=== PATIENT | male | born 1955 | race Caucasian/White ===

== ENCOUNTER 2024-12-02 05:36 | Inpatient (IN) ==
--- NOTE | 2024-11-22 15:48 | PAT Medication Instructions ---
Medication Instructions Date of Service November 22, 2024 Home Medications hydrocodone 10 mg-acetaminophen 325 mg tablet 1 tab PO TID Pain ascorbic acid (vitamin C) 500 mg tablet (Vitamin C) 500 mg PO QAM aspirin 81 mg capsule 81 mg PO DAILY baclofen 10 mg tablet 10 mg PO TID cholecalciferol (vitamin D3) 25 mcg (1,000 unit) tablet (Vitamin D3) 25 mcg PO QAM lutein 20 mg tablet 20 mg PO QAM morphine 30 mg tablet,extended release 30 mg PO Q12H xfnylkzranzt-liteywpp-aoscqy tablet (Multivitamin 50 Plus tablet) 1 tab PO QAM omega 8-vep-qnc-fish oil 1,000 mg (120 mg-180 mg) capsule (Fish Oil) 1 cap PO HS zinc 50 mg tablet 50 mg PO QPM ASK your prescriber and surgeon aspirin 81 mg capsule 81 mg PO DAILY STOP taking 2 weeks before surgery (or as soon as possible if surgery is within 2 weeks) lutein 20 mg tablet 20 mg PO QAM omega 0-kue-uvc-fish oil 1,000 mg (120 mg-180 mg) capsule (Fish Oil) 1 cap PO HS DO NOT take the morning of surgery ascorbic acid (vitamin C) 500 mg tablet (Vitamin C) 500 mg PO QAM cholecalciferol (vitamin D3) 25 mcg (1,000 unit) tablet (Vitamin D3) 25 mcg PO QAM bdozypkelkbh-aufjgvcd-ucxymc tablet (Multivitamin 50 Plus tablet) 1 tab PO QAM Take morning of surgery With a small sip of water, OTHERWISE NOTHING TO EAT OR DRINK AFTER MIDNIGHT: hydrocodone 10 mg-acetaminophen 325 mg tablet 1 tab PO TID Pain (if needed) baclofen 10 mg tablet 10 mg PO TID morphine 30 mg tablet,extended release 30 mg PO Q12H Take evening before surgery hydrocodone 10 mg-acetaminophen 325 mg tablet 1 tab PO TID Pain (if needed) baclofen 10 mg tablet 10 mg PO TID morphine 30 mg tablet,extended release 30 mg PO Q12H zinc 50 mg tablet 50 mg PO QPM Other Notes If you have any questions please call us at [phone] or [phone] or [phone] or [phone]
--- NOTE | 2024-11-25 09:01 | Anesthesiology Consultation ---
Date of Service November 25, 2024 Assessment & Plan (1) Encounter for pre-operative examination: - check BSG am DOS. - Patient acceptable to proceed from anesthesia standpoint. Surgeon's office made aware of A1c level. Patient made aware, he denied additional questions or concerns-expressed he knew it was borderline last year and has been working to reduce soda intake. PAT testing to be faxed to PCP for continuity of care, Dr. Varsha Angel. Chart Review Chart Review: Acceptable Risk for Surgery and Patient seen in Pre Admission Testing Teaching & Discussion Pre-Anesthesia Teaching/Discussion Notes: Instructed NPO after midnight before surgery, except medications with 15 cc of water. Medication instructions provided according to the PAT guidelines. History Surgery Operation Date: 12/02/24 07:15 Proposed Procedures p Right L3-L4 Extreme Lateral Interbody Fusion, Posterior Instrumented Fusion L3-L4, L3 Laminectomy, with CT Navigation - Fox Adams MD Height/Weight Height: 5 ft 8 in Weight: 95 kg Allergies Allergy/AdvReac Type Severity Reaction Status Date / Time celecoxib [From Celebrex] Allergy Severe itching Verified 11/22/24 14:56 all over and slight sob codeine Allergy Severe facial Verified 11/22/24 14:56 swelling, difficulty breathing Medications Home Medications Medication Instructions Recorded Confirmed Last Taken hydrocodone 10 mg-acetaminophen 1 tab PO TID Pain 11/20/24 11/22/24 Unknown 325 mg tablet ascorbic acid (vitamin C) 500 mg 500 mg PO QAM 11/22/24 11/22/24 Unknown tablet (Vitamin C) aspirin 81 mg capsule 81 mg PO DAILY 11/22/24 11/22/24 Unknown baclofen 10 mg tablet 10 mg PO TID 11/22/24 11/22/24 Unknown cholecalciferol (vitamin D3) 25 25 mcg PO QAM 11/22/24 11/22/24 Unknown mcg (1,000 unit) tablet (Vitamin D3) lutein 20 mg tablet 20 mg PO QAM 11/22/24 11/22/24 Unknown morphine 30 mg tablet,extended 30 mg PO Q12H 11/22/24 11/22/24 Unknown release qeeppbvwljyj-dkdgpwof-sgpayh 1 tab PO QAM 11/22/24 11/22/24 Unknown tablet (Multivitamin 50 Plus tablet) omega 6-jre-scm-fish oil 1,000 mg 1 cap PO HS 11/22/24 11/22/24 Unknown (120 mg-180 mg) capsule (Fish Oil) zinc 50 mg tablet 50 mg PO QPM 11/22/24 11/22/24 Unknown Past Medical History Medical History (Updated 11/27/24 @ 08:25 by Jes Negrete PA-C) Chronic back pain Chronic neck pain Diabetes History of asthma as a young adult "humidity asthma" - no current issues History of COVID-19 (~2019) ~2020: severe cold symptoms, no hospitalization. resolved History of skin cancer multiple, s/p excisions Lumbar foraminal stenosis Lumbar radiculopathy Patient denies h/o stroke, seizures, heart attack, heart failure, DM, HTN, blood clots/DVTs or blood transfusions. Exercise / Class Metabolic Activity III < 4 Walking/Shop/Light housework (ambulates with cane, denies chest discomfort or shortness of breath with usual activities) Past Family History Family History Other No family history of adverse response to anesthesia Past Surgical History Surgical History History of appendectomy (1968) History of carpal tunnel release (1983) bilateral History of colonoscopy History of lumbar surgery (1986) no fusion Hx of local excision of skin lesion S/P cervical spinal fusion ~2000 - ACDF - unsure of what levels ~2001 - ACDF - revision of cervical fusion with additional level ~2002 - ACDF - revision of cervical fusion with additional level - limited ROM to the right, no issues looking up/down. S/P epidural steroid injection S/P hernia repair (1962) right inguinal hernia repair S/P insertion of spinal cord stimulator placed in 2009 ([facility] in [place]), had a replacemen t/upgraded device placed in + had removed for an MRI (removed 09/2024) S/P lumbar fusion (1998) Past Anesthesia History No Hx of Anesthesia Complications and No Family Hx of Anesthesia Complications History of PONV No Hx of PONV and No Hx of Motion Sickness Social History Smoking Status: Former smoker Do You Dip or Chew Tobacco: No Smoking End Date: 1996 Hx Alcohol Use: Yes Alcohol type: beer alcohol intake frequency: holidays/special occasions only Hx Substance Use: No substance use type: does not use Review of Systems Patient denies chest pain, shortness of breath, dyspnea on exertion, snoring, witnessed apneas, reflux, fever, chills, cough, wheezing, or palpitations. Physical Exam Vital Signs Vitals BP 157/78 P 79 TEMP 97.9 SP02 95% on RA RESP 17 Physical Patient resting comfortably in chair in no acute distress, alert and oriented, responding appropriately throughout visit Full cervical extension range of motion without pain TMD 3.5 finger breadths Mallampati Score 2 Dentition: upper partial and chipped tooth, denies loose teeth, caps/crowns, implants or bridges Lungs: normal respiratory effort. Good air movement, clear throughout to auscultation, no adventitious breath sounds Cardiac: regular rate and rhythm, no murmurs noted Carotid arteries: negative bruit bilat Lab Results Anesthesia Preop Results Results Anesthesia Widget: WBC 5.52 K/ul (4.8-10.8) 11/25/24 Hgb 13.6 g/dl (14.0-18.0) L 11/25/24 Hct 40.9 % (42.0-52.0) L 11/25/24 Plt 168 K/uL (130-400) 11/25/24 Na 138 mmol/L (136-145) 11/25/24 K 3.9 mmol/L (3.5-5.1) 11/25/24 Cl 102 mmol/L (98-107) 11/25/24 CO2 30 mmol/L (21-32) 11/25/24 BUN 15 mg/dl (6-23) 11/25/24 Creat 0.85 mg/dl (0.6-1.4) 11/25/24 Glucose Level 226 mg/dl (70-99(Fasting)) H 11/25/24 PT 9.9 Seconds (9.0-12.0) 11/25/24 PTT 26 Seconds (21-31) 11/25/24 INR 0.9 (0.9-1.1) 11/25/24 HA1c 6.5 % (4.5-5.6) H 11/25/24 Blood Type A Positive 11/25/24 Antibody Screen NEGATIVE 11/25/24 Testing Laboratory Results A1c was not covered by insurance, patient elected for cancellation of A1c- surgeon's office made aware. Electrocardiogram Date: 11/25/24 NSR, rate 73 bpm
[2024-12-02] MEDS: LR 60ML/HR IV SCH (06:22)
[2024-12-02] MEDS: LR 15ML/HR IV SCH (06:22)
[2024-12-02] MEDS ORDERED: ATROPINE SULFATE 0.1 MG/ML 10ML SYR IV PRN (06:59)
[2024-12-02] MEDS ORDERED: PROMETHAZINE HCL 6.25 MG in SODIUM CHLORIDE 0.9% 50 ML IV PRN (06:59)
[2024-12-02] MEDS ORDERED: ePHEDrine sulfate 50 MG/ML AMP IV PRN (06:59)
[2024-12-02] MEDS ORDERED: ONDANSETRON INJ 2 MG/ML 2 ML VIAL ONE ×3 (07:03→08:41)
[2024-12-02] MEDS ORDERED: DEXAMETHASONE SOD INJ 4 MG/ML VIAL ONE (07:03)
[2024-12-02] MEDS ORDERED: LIDOCAINE 2% 2 ML VIAL/AMP(20MG/ML) INFIL ONE (07:03)
[2024-12-02] MEDS ORDERED: MIDAZOLAM HCL 1 MG/ML 2ML VIAL ONE (07:03)
[2024-12-02] MEDS ORDERED: PROPOFOL IV EMULSION 10 MG/ML 20 ML VIAL IV ONE (07:03)
[2024-12-02] MEDS ORDERED: HYDROmorphone INJ 2 MG/ML SYR/VIAL ONE (07:04)
[2024-12-02] MEDS ORDERED: ROCURONIUM BROMIDE 10 MG/ML 5 ML VIAL IV ONE (07:04)
[2024-12-02] MEDS ORDERED: SODIUM CHLORIDE 0.9% PF INJ 10 ML VIAL ONE (07:04)
[2024-12-02] MEDS ORDERED: SUCCINYLCHOLINE CHLORIDE 20 MG/ML 10 ML VIAL IV ONE (07:04)
--- NOTE | 2024-12-02 07:31 | History & Physical Bridge Note ---
Date of Service December 02, 2024 History & Physical Bridge Note I have examined the patient, reviewed the History & Physical and in the interval since the performance of the History & Physical I have noted the following changes of clinical significance: no changes noted Lateral lumbar interbody fusion and decompression L3-4
[2024-12-02] MEDS ORDERED: PHENYLEPHRINE 100MCG/ML 5ML SYR ONE ×2 (08:05→10:01)
[2024-12-02] MEDS ORDERED: ePHEDrine sulfate 50 MG/5 ML SYR ONE (08:10)
[2024-12-02] MEDS: ceFAZolin 2000MG 2,000 MG/15 ML SYR IV SCH ×2 (08:15→19:56)
[2024-12-02] MEDS ORDERED: PHENYLEPHRINE HCL 10 MG/ML VIAL ONE (08:19)
[2024-12-02] MEDS ORDERED: SUGAMMADEX SODIUM 200 MG/2 ML VIAL IV ONE (08:42)
[2024-12-02] MEDS ORDERED: PROPOFOL IV EMULSION 10 MG/ML 100 ML VIAL IV ONE ×3 (08:44→10:45)
--- NOTE | 2024-12-02 10:51 | Fluoroscopy Report ---
FL lumbar spine 2-3V CLINICAL HISTORY: L3-L4 COMPARISON STUDY: None FLUOROSCOPY TIME: 103 seconds FLUOROSCOPY IMAGES: 4 EXPOSURE DOSE: 71 mGy FINDINGS: Fluoroscopy was provided for lumbar surgery. IMPRESSION: Intraoperative fluoroscopy. ACT 112: Negative or not required by law. Electronically signed by: Niraj Weller M.D. 12/02/2024 10:50 AM
[2024-12-02] MEDS: VANCOMYCIN HCL 1000MG/20ML VIAL ONE (11:09)
[2024-12-02] MEDS: FLOSEAL HEMOSTATIC MATRIX 10ML TOP ONE (11:46)
[2024-12-02] MEDS: BUPIVACAINE 0.5 % 5 MG/1 ML MPF 30ML VIAL ONE (11:59)
--- NOTE | 2024-12-02 12:13 | Post Operative Brief Note ---
PG Immediate Post Op with CF Date of Surgery December 02, 2024 Pre & Post Diagnosis Operation Date: 12/02/24 07:15 Pre-Op Diagnosis: (1) Lumbar adjacent segment disease with spondylolisthesis (2) Lumbar radiculopathy (3) Lumbar stenosis with neurogenic claudication (4) Lumbar spondylosis (5) Lumbar foraminal stenosis Post-Op Diagnosis: (1) Lumbar adjacent segment disease with spondylolisthesis (2) Lumbar radiculopathy (3) Lumbar stenosis with neurogenic claudication (4) Lumbar spondylosis (5) Lumbar foraminal stenosis I identified the patient and participated in the time-out.: Yes Procedure Operation Date: 12/02/24 07:15 Actual Procedures p Right L3-L4 Extreme Lateral Interbody Fusion, L3-L4 Posterior Instrumented Fusion, L3 Laminectomy, Spinal Cord Monitoring(Right) - Fox Adams MD Surgeon Fox Adams MD Rn Dermatology Latia Waldron Estimated Blood Loss 75 Findings Consistent with Post-Op Diagnosis Specimens Specimen Description: No specimen per surgeon Drains Kulkarni Catheter Anesthesia Type General Complications none Disposition Disposition: Recovery Room
--- NOTE | 2024-12-02 12:26 | Operative Report ---
Post Operative Report Pre & Post Diagnosis Operation Date: 12/02/24 07:15 Pre-Op Diagnosis: (1) Lumbar adjacent segment disease with spondylolisthesis (2) Lumbar radiculopathy (3) Lumbar stenosis with neurogenic claudication (4) Lumbar spondylosis (5) Lumbar foraminal stenosis Post-Op Diagnosis: (1) Lumbar adjacent segment disease with spondylolisthesis (2) Lumbar radiculopathy (3) Lumbar stenosis with neurogenic claudication (4) Lumbar spondylosis (5) Lumbar foraminal stenosis I identified the patient and participated in the time-out.: Yes Procedure Operation Date: 12/02/24 07:15 Actual Procedures Anterior Lumbar Interbody Fusion via direct lateral approach L3-4 (05566) Insertion of Interbody Device for Fusion L3-4 (69668) Posterior Lumbar Fusion L3-4 (56742) Lumbar Laminectomy with medial facetectomy L3-4 (00422) Posterior Nonsegmental Pedicle Screw Instrumentation L3-4 (32295) Use of Intraoperative Stereotactic Navigation for Spinal Instrumentation (79850) Allograft and Autograft for Spinal Fusion (97677 and 06396) Instrumentation Medtronic Anteralign cage, Medtronic Percutaneous Screws Surgeon Fox Adams MD Bar Tacker Latia Waldron Estimated Blood Loss 75 Findings Consistent with Post-Op Diagnosis Specimens None Drains None Anesthesia Type General Complications none Disposition Disposition: Recovery Room Indications Patient with remote history of L4-S1 anterior posterior fusion developed adjacent segment degeneration at the L3-4 level with instability. Began to experience worsening leg pain down bilateral lower extremities consistent with both lumbar radiculopathy and neurogenic claudication. He failed extensive conservative care including epidural injections. Given failure of conservative management we discussed in the office setting anterior posterior lumbar interbody fusion via direct lateral approach as well as lumbar decompression. Risks and benefits of surgery were clearly documented in his preoperative clinic visit. Description of Procedure In the preoperative holding area, the patient was marked with a marking pen. They were taken to the operating room and anesthesia was initiated. Neuromonitoring was utilized, including running electromyography and triggered electromyography. They patient was placed in a lateral position. All bony prominences were carefully padded. Antibiotics were administered. A timeout was performed. Under the guidance of fluoroscopy, a lateral approach was utilized. An incision was made directly lateral over the L3-4 disk space. Blunt dissection was completed into the retroperitoneal space. The psoas was bluntly cleared off. A dilator was placed under fluoroscopy at the junction of the posterior and middle third of the disk space. The dilator was carefully dissected through the psoas to dock on the disc space. Neuromonitoring revealed that there were no nerves adjacent to the dilator. A guidewire was placed into the disk space. Progressively larger dilators were inserted. Neuromonitoring was utilized with each dilator to ensure that no nerves were adjacent to the approach. An appropriately sized retractor was placed over the dilators. It was secured to the bed using a clamp. Neuromonitoring revealed no nerves adjacent to the retractor. It was gently opened a small amount. A ball tip probe attached to neuromonitoring was used to further confirm that there were no nerves in the visualized field or directly behind the retractor. Having cleared the field of nerves, an annulotomy was completed using a knife. A diskectomy was completed using curettes, rongeurs and pituitaries. The endplates were prepared. An appro priately sized interbody spacer was selected and implanted after being packed with BMP and allograft material. The retractor was carefully removed and meticulous hemostasis was achieved. The fascia was closed using absorbable suture. The subcutaneous was closed using absorbable suture. Tissue sealant was used to close the skin. A sterile dressing was placed. The patient was then placed prone on a [place] table for the posterior procedure. Their back was prepped and draped in typical sterile fashion. A timeout was performed again. A stereotactic frame was attached to the patient. Intraoperative O-arm CT (computed tomography) images were obtained for stereotactic navigation. A #10 blade was used to incise the skin. Bovie electrocautery was used to elevate the paraspinal musculature off of the laminae. Using a Kerrison rongeur, a laminectomy of L3 was completed. A partial superior laminectomy of L4 was completed. Ligamentum flavum between L3-4 was removed. There was noted to be facet hypertrophy at L3-4. This was causing significant lateral recess stenosis. Therefore, a partial medial facetectomy was completed. The L4 traversing nerve roots were confirmed to be completely decompressed. Bilateral foraminotomy performed to decompress the exiting nerve roots. The L3-4 facet joints were decorticated. Local autograft was packed into the facets to induce fusion. Using stereotactic assistance, pedicle screw tracts were created using an awl. Next, utilizing stereotactic assistance, screws of appropriate length were placed into the pedicles of L4 and L3. Electromyography confirmed appropriate position. Rods were placed bilaterally. Set screws were placed and final tightened. A second intraoperative CT scan was then obtained to verify appropriate position of the hardware. The fascia, subcutaneous and cutaneous were closed in layers using suture. A sterile dressings was placed. At the end of case, all instrument and sponge counts were correct. The patient was awakened from anesthesia and taken to the PACU in stable condition. I attest to the content of the Intraoperative Record and any orders documented therein. Any exceptions are noted below.
[2024-12-02] MEDS: HYDROmorphone INJ 2 MG/ML SYR/VIAL IV PRN (12:50)
[2024-12-02] MEDS: ACETAMINOPHEN 1,000 MG/100 ML VIAL IV STA (13:29)
[2024-12-02] MEDS: HYDROmorphone INJ 0.5 MG/0.5 ML SYR IV PRN (13:29)
--- NOTE | 2024-12-02 14:04 | Anesthesiology Progress Note ---
Date of Service December 02, 2024 Anesthesia Post Procedure Vital Signs Vital Signs: Temp Pulse Pulse Resp BP Pulse Ox O2 Del Method 12/02/24 14:00 100 H 12 112/70 95 Nasal Cannula 12/02/24 13:45 36.4 C L 96 H 12 111/71 97 Nasal Cannula 12/02/24 13:35 102 H 16 119/69 95 Nasal Cannula 12/02/24 13:25 93 H 16 135/76 94 Nasal Cannula 12/02/24 13:15 102 H 14 129/74 95 Nasal Cannula 12/02/24 13:05 97 H 20 148/75 H 96 Nasal Cannula 12/02/24 12:55 90 16 145/84 H 100 Oxymask 12/02/24 12:45 93 H 16 154/85 H 99 Oxymask 12/02/24 12:35 91 H 14 154/88 H 96 Oxymask 12/02/24 12:25 98 H 16 154/76 H 96 Oxymask 12/02/24 12:15 36 C L 99 H 18 154/85 H 96 Oxymask 12/02/24 06:02 37.0 C 94 H 18 152/93 H 94 Room Air O2 Flow Rate 12/02/24 14:00 3 12/02/24 13:45 3 12/02/24 13:35 3 12/02/24 13:25 3 12/02/24 13:15 3 12/02/24 13:05 3 12/02/24 12:55 4 12/02/24 12:45 4 12/02/24 12:35 6 12/02/24 12:25 6 12/02/24 12:15 6 12/02/24 06:02 Pain Intensity Lower Back: Pain Intensity: 4 Transfer of Care Handoff Completed per policy Notes Mental Status: alert / awake / arousable and participated in evaluation Nausea / Vomiting: adequately controlled Pain: adequately controlled Airway Patency, RR, SpO2: stable & adequate BP & HR: stable & adequate Hydration State: stable & adequate Anesthetic Complications: no major complications apparent and Pt Satisfied with anesthetic care
[2024-12-02] MEDS ORDERED: LORazepam 2 MG/1 ML VIAL IV PRN (14:54)
[2024-12-02] MEDS ORDERED: hydrOXYzine HCl 25 MG TAB PO PRN (14:54)
[2024-12-02] MEDS ORDERED: PROMETHAZINE 12.5 MG/50.5 ML BAG IV PRN (14:54)
[2024-12-02] MEDS ORDERED: ONDANSETRON 4 MG OD TAB PO PRN (14:54)
[2024-12-02] MEDS ORDERED: bisacodyL 10 MG SUPP PR PRN (14:54)
[2024-12-02] MEDS ORDERED: ONDANSETRON INJ 2 MG/ML 2 ML VIAL IV PRN (14:54)
[2024-12-02] MEDS ORDERED: ACETAMINOPHEN 1,000 MG/100 ML VIAL IV PRN (14:54)
[2024-12-02] MEDS ORDERED: SOD PHOSPHATE/SOD BIPHOSPHATE ENEMA 132 ML BTL PR PRN (14:54)
[2024-12-02] MEDS ORDERED: LORazepam 0.5 MG TAB PO PRN (14:54)
[2024-12-02] MEDS ORDERED: FAMOTIDINE 20 MG TAB PO PRN (14:54)
[2024-12-02] MEDS ORDERED: ALUMINUM/MAGNESIUM SUSP 30 ML UDC PO PRN (14:54)
[2024-12-02] MEDS ORDERED: DO NOT ADMINISTER FLU VACCINE PRN (14:54)
[2024-12-02] MEDS ORDERED: MAGNESIUM HYDROXIDE SUSP 30 ML UDC PO PRN (14:54)
[2024-12-02] MEDS ORDERED: NALOXONE HCL 0.4 MG/1 ML VIAL/CARP IV PRN (14:54)
[2024-12-02] MEDS ORDERED: DO NOT ADMINISTER PNEUMOCOCCAL VACCINE PRN (14:54)
[2024-12-02] MEDS ORDERED: METOCLOPRAMIDE HCL INJ 5 MG/ML 2 ML VIAL IV PRN (14:54)
[2024-12-02] MEDS: ACETAMINOPHEN 1000 MG/100 ML IV IV ONE (14:58)
[2024-12-02] MEDS: HYDROmorphone INJ 0.5 MG/0.5 ML SYR ONE (14:58)
[2024-12-02] MEDS: BACLOFEN 10 MG TAB PO SCH (15:46)
[2024-12-02] MEDS: dexAMETHasone 8 MG in SYRINGE 0 ML IV SCH (17:00)
[2024-12-02] MEDS: MoRPHine SULFATE CR 15 MG TABCR PO SCH (18:23)
[2024-12-02] MEDS: oxyCODONE HCL IR 5 MG TAB (IMMEDIATE RELEASE) PO PRN (19:56)
[2024-12-02] MEDS: DOCUSATE SODIUM/SENNA 50/8.6MG TAB PO SCH (20:00)
[2024-12-02] MEDS ORDERED: NON-FORMULARY MEDICATION (Zinc 50 mg Tablet) PO SCH (21:00)
[2024-12-03] MEDS: diphenhydrAMINE Capsule 25 MG CAP PO PRN (01:23)
[2024-12-03] MEDS: POLYETHYLENE (MIRALAX) 17 GM PACK PO SCH (05:14)
[2024-12-03 06:15] LABS: Basophils # (auto) 0.01 K/uL (0.00-0.20); Basophils % (auto) 0.1 %; Hematocrit (blood only) 36.1 % (42.0-52.0); Hemoglobin 12.3 g/dl (14.0-18.0); Immature Granulocytes # (auto) 0.07 K/uL (0.01-0.20); Immature Granulocytes % (auto) 0.6 %; Lymphocytes # (auto) 1.32 K/uL (1.20-3.40); Lymphocytes % (auto) 11.1 %; Mean Corpuscular Hemoglobin 28.3 pg (25.0-34.0); Mean Corpuscular Hgb Conc 34.1 g/dL (32.0-36.0); Mean Platelet Volume 10.9 fL (9.4-12.4); Monocytes % (auto) 2.5 %; Neutrophils # (auto) 10.19 K/uL (1.40-6.50); Neutrophils % (auto) 85.7 %; Platelet Count 159 K/uL (130-400); RDW Coefficient of Variation 13.6 % (11.5-14.5); RDW Standard Deviation 41.1 fL (36.4-46.3); Red Blood Count 4.35 M/uL (4.70-6.10); White Blood Count 11.89 K/ul (4.8-10.8)
[2024-12-03 06:31] LABS: BUN Creatinine Ratio 20.9 (10-20); Calcium 8.9 mg/dl (8.6-10.3); Creatinine Clr Calc Pharmacy 92.9 ml/min; Potassium 4.2 mmol/L (3.5-5.1)
[2024-12-03] MEDS: ASPIRIN 81 MG ECTAB PO SCH (08:17)
[2024-12-03] MEDS: CHOLECALCIFEROL 25 MCG (1000 UNITS) TAB PO SCH (08:18)
[2024-12-03] MEDS: ASCORBIC ACID 500 MG TAB PO SCH (08:18)
[2024-12-03] MEDS: ACETAMINOPHEN 500 MG TAB PO PRN (08:20)
--- NOTE | 2024-12-03 08:55 | Orthopedic Progress Note ---
Date of Service December 03, 2024 Assessment & Plan (1) S/P lumbar fusion: Plan Mobilize with PT diet as tolerated home morphine, oxy and baclofen prn wagoner out when ambulating Subjective s/p Lumbar fusion, stood up last night but no PT yet as he did not get to room until late. No leg pain, reports back pain at surgical site which improves with baclofen. Review of Systems All systems reviewed & are unremarkable except as noted in HPI & below. Physical Exam L2-S1 myotomes and dermatomes wagoner in place dressing c/d/i Results & Data Results & Data Laboratory Results . Diagnostic Findings . PG Care Time/CCT Total # of Minutes Spent Total Time Spent with Patient: Total time spent is greater than 50% in coordination of care (as documented) at patient's floor/unit and/or counseling patient: Coding Level of Care Code 40658 Post Operative Follow-Up Diagnoses S/P lumbar fusion Z98.1
[2024-12-03] MEDS ORDERED: NON-FORMULARY MEDICATION (Lutein 20 mg Tablet) PO SCH (09:00)
--- NOTE | 2024-12-03 09:33 | XRay Report ---
XR lumbar spine 2-3V CLINICAL HISTORY: post-op spine surgery COMPARISON STUDY: 11/20/2024 FINDINGS: There is interval laminectomy and posterior metallic fusion at L3-4 with no hardware compli cation seen. Stable interbody fusion at L4-5 and L5-S1. There is expected soft tissue gas and skin st aples are present posteriorly. IMPRESSION: Unremarkable postoperative exam. ACT 112: Negative or not required by law. Electronically signed by: Niraj Weller M.D. 12/03/2024 9:32 AM
--- NOTE | 2024-12-04 11:56 | Orthopedic Progress Note ---
Date of Service December 04, 2024 Assessment & Plan (1) S/P lumbar fusion: (2) Lumbar adjacent segment disease with spondylolisthesis: (3) Lumbar radiculopathy: (4) Lumbar stenosis with neurogenic claudication: (5) Lumbar spondylosis: (6) Lumbar foraminal stenosis: Plan 69-year-old male POD#2 s/p lumbar spinal fusion due to adjacent segment disease with spondylolisthesis. Pain is controlled. Medically stable. He is neurologically intact to bilateral lower extremities. Plan: 1. DVT prophylaxis w/ regular ambulation/mobilization, SCDs, and aspirin. 2. Continue PT/OT. WBAT and AAT. 3. Dressing was intact and well-appearing -- to be removed and replaced with fresh dressing prior to discharge today. 4. Return of normal bowel and bladder function. 5. Home medications of morphine, Dixon, and baclofen as needed for pain control purposes once discharged. 6. Disposition - discharge to home today once transport arrives. 7. F/u as scheduled on 12/17/24 @ 10:00 w/ Dr. Adams for first post-op visit. Subjective Patient is POD# 2 s/p: Operation Date: 12/02/24 07:15 Actual Procedures Anterior Lumbar Interbody Fusion via direct lateral approach L3-4 (16525) Insertion of Interbody Device for Fusion L3-4 (42859) Posterior Lumbar Fusion L3-4 (41780) Lumbar Laminectomy with medial facetectomy L3-4 (05488) Posterior Nonsegmental Pedicle Screw Instrumentation L3-4 (87092) Use of Intraoperative Stereotactic Navigation for Spinal Instrumentation (17306) Allograft and Autograft for Spinal Fusion (38156 and 24755) Instrumentation Medtronic Anteralign cage, Medtronic Percutaneous Screws by Dr. Adams on 12/02/2024. Patient says his pain is well-controlled this morning. Denies CP, SOB, N/V, BLE paresthesia. He says that the preoperative pain/paresthesia symptoms into the lower extremities has gone away. He does admit to some operative site pain, but this is controlled with the medications he is currently taking. Patient says that he will be ready to go home today, and that his transport should be arriving soon. Review of Systems All systems reviewed & are unremarkable except as noted in HPI & below. Physical Exam GENERAL: Speech and cognition is intact. Mood and affect is appropriate. Does not appear in acute distress. HEAD: Normocephalic; atraumatic. CHEST: Regular chest respiration and excursion. EXTREMITIES: Sensation intact to light touch of the bilateral L2-S1 dermatomes. 5/5 strength L1-S2 myotomes; No deficits noted. BACK: Gauze dressing intact to lumbar region with mild dried saturation noted, which is stable. Dressing intact to lateral lumbar region. Tegaderm occlusive dressings intact with good seal. NEURO: Awake, alert, and oriented x 3. Results & Data Results & Data Laboratory Results . Diagnostic Findings . Lumbar Spine X-Ray 12/03/24 07:00 XR lumbar spine 2-3V CLINICAL HISTORY: post-op spine surgery COMPARISON STUDY: 11/20/2024 FINDINGS: There is interval laminectomy and posterior metallic fusion at L3-4 with no hardware complication seen. Stable interbody fusion at L4-5 and L5-S1. There is expected soft tissue gas and skin millie are present posteriorly. IMPRESSION: Unremarkable postoperative exam. ACT 112: Negative or not required by law. Electronically signed by: Niraj Weller M.D. 12/03/2024 9:32 AM PG Care Time/CCT Total # of Minutes Spent Total Time Spent with Patient: Total time spent is greater than 50% in coordination of care (as documented) at patient's floor/unit and/or counseling patient: C[place] [address] Post Operative Follow-Up Patient Type Established History Problem Focused Exam Problem Focused Medical Decision Making Straight Forward Diagnoses S/P lumbar fusion Z98.1 Lumbar adjacent segment disease with spondylolisthesis M51.369; M43.16 Lumbar radiculopathy M54.16 Lumbar stenosis with neurogenic claudication M48.062 Lumbar spondylosis M47.816 Lumbar foraminal stenosis M48.061
--- NOTE | 2024-12-04 12:00 | Discharge Summary ---
Date of Service December 04, 2024 Admission HPI (Per Admitting) Patient is a pleasant 69-year-old gentleman who comes in today for evaluation of worsening back pain radiating to the bilateral lower extremities. He has an extensive history of spine surgery, anterior lumbar interbody fusions at L4-5 L5-S1 which were done back in 1998. Since that time he has had varying degrees of back pain as well as some lower extremity pain. He has done physical therapy multiple times, and has been treating with a pain management physician Dr. Wilkes in [place]. Recently he had worsening low back pain as well as pain radiating down the bilateral lower extremities into the anterior and posterior thighs with associated weakness. He has now only able to ambulate short distances given the severity of the pain and weakness into the lower bilateral lower extremities. Retains normal bowel and bladder function. He is had a spinal cord stimulator removed, trialed epidural injections, activity modification as well as pain medications with symptoms greater than 3 months duration at this time that are refractory to conservative care. He does report some relief with flexing forward. Given the degenerative changes in the lumbar spine and failure of conservative management we discussed surgical options today. The patient has already had significant activity modification, epidural injections, pain medications with failure of relief. He does have some mobile instability at the L3-4 level above his prior fusion as well as severe foraminal and central canal and lateral recess stenosis. Given the adjacent segment degeneration I discussed extending his fusion to the L3 level with lateral lumbar interbody fusion at L3-4 with placement of an interbody spacer, reinforcement with posterior instrumentation from L3-L4, posterior lateral fusion and wide decompressive laminectomy with facetectomies to adequately decompress the foramen and exiting nerve roots at this level. We discussed surgical intervention at length, and the patient was informed that risks include but are not limited to: bleeding and possible need for blood transfusion, infection, blood clots to extremities or lungs, no relief of symptoms, dural tear, nerve injury, paralysis, weakness, pain, instrumentation failure, prolonged recovery, need for physical therapy or rehabilitation services, loss of bowel/bladder control, recurrent stenosis or disc herniation, need for more surgery, and in very rare instances even . We also discussed that there is risk of pseudarthrosis formation, failure of the fusion to occur which may increase chances of instrumentation failure or need for further surgery. We also discussed that fusing the spine puts the patient at risk for adjacent segment breakdown and possible need for future surgery, the risk is approximately 3-5% per year. The patient voiced understanding of the risks and benefits of surgery and elected to proceed. Patient is in agreement with the plan and would like to schedule surgery. He does not report any history of cardiac or pulmonary disease, will have him evaluated by the anesthesia preoperative clinic. We did discuss that he has adjacent segment degeneration, he was warned about this at his first surgery, I explained that this risk does not go away by extending the fusion to the L3 level however gets transferred to the levels above. He voiced understanding and wishes to proceed with surgery. He will continue with pain management medications prescribed by Dr. Wilkes. Admission Exam (Per Admitting) Constitutional: Well developed, appears stated age Psych: patient is coherent and answers questions appropriately, normal affect Eye: Normal gaze, no redness to sclera, pupils round and equal Pulm: Normal respiratory effort, no wheezing Cardiovascular: no significant peripheral edema, palpable DP/PT pulses Skin well-healed abdominal incision to the left of the umbilicus No midline or paraspinal tenderness with palpation over the lumbar spine, no stepoffs Motor strength is 4 /5 in bilateral hip flexors slightly worse on the right, 4 out of 5 quadriceps, 4 out of 5 right tibialis anterior, 5 out of 5 left tibialis anterior and bilateral EHL, gastrocsoleus Sensation intact to light touch in the L2-S1 dermatomes bilaterally Diminished reflexes at patella tendons bilaterally Principal Diagnosis Same as "Discharge Diagnosis" noted below under Discharge Instructions. Discharge Exam GENERAL: Speech and cognition is intact. Mood and affect is appropriate. Does not appear in acute distress. HEAD: Normocephalic; atraumatic. CHEST: Regular chest respiration and excursion. EXTREMITIES: Sensation intact to light touch of the bilateral L2-S1 dermatomes. 5/5 strength L1-S2 myotomes; No deficits noted. BACK: Gauze dressing intact to lumbar region with mild dried saturation noted, which is stable. Dressing intact to lateral lumbar region. Tegaderm occlusive dressings intact with good seal. NEURO: Awake, alert, and oriented x 3. 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 Patient had general anesthesia for the procedure. Patient was admitted to the general orthopedic floor in stable condition postoperatively for pain control and mobilization with physical therapy; they safely and properly performed the ADL tasks demonstrated by PT/OT and met all goals. Pain was controlled with IV pain medication, with a transition to oral medications. Normal return of bowel and bladder function. They worked with therapy, vital signs were acceptable, no need for transfusion, deemed safe for discharge. Patient was then discharged home in stable condition, with self-care and assistance from his . Patient will follow-up with Dr. Dueñas in the orthospine clinic in approximately 2 weeks, as scheduled, for postoperative care. PG Care Time/CCT Total # of Minutes Spent Total Time Spent with Patient: Total time spent is greater than 50% in coordination of care (as documented) at patient's floor/unit and/or counseling patient: Discharge Plan Discharge Items Patient Disposition: Home - Self-Care Reason For Visit: Lumbar Disc Herniation, Right Lumbar Radiculopathy Discharge Diagnosis: s/p lumbar spinal fusion L3-4 Activity: Per Instructions section Lifting: No more than 10 pounds Bathing: May shower/bathe in 3 days Non-emergency contact: Surgeon Call non-emergency contact if: your pain is worsening, your temperature is above 101, your wound has increased redness and your wound has increased drainage Follow-up/Referrals: Fox Adams MD [Surgeon] - (12/17/24 @ 10:00) PCP,NO [Physician] - Diet: Regular Addtl Attending Provider Instructions: Instructions for FUSION Spine Surgery DO NOT TAKE ANY ANTI-INFLAMMATORY MEDICATIONS (MOTRIN, ALEVE, MOBIC, ETC.) IF YOU HAVE UNDERGONE A LUMBAR, THORACIC, OR CERVICAL FUSION DO NOT TAKE ANY HERBAL SUPPLEMENTS MEDICATIONS: You will be given prescriptions for the following: Oxycodone, Percocet or Hydrocodone - For breakthrough pain. Use the prescribed pain medication, and/or [id number] Tylenol, as needed for pain relief -- follow directions on the bottle; limit Tylenol to 3,000 mg maximum in a 24-hour period. No use of NSAIDs (i.e ibuprofen/Advil/Motrin, naproxen/Aleve, etc.) for 3 months after surgery. Cyclobenzaprine (Flexeril), Valium (Diazepam), Tizanidine (Zanaflex), or Methocarbamol (Robaxin) For muscle spasms and back pain. Take these medications as needed. They will help the most during your recovery time. Senna-s and Miralax Senna-S twice daily, 17g packet of Miralax with water once daily while taking narcotics. These medications prevent constipation caused by the pain medications. Ondansetron (Zofran) For nausea. Cephalexin (Keflex) or Sulfamethoxazole/trimethoprim (Bactrim). Antibiotic. You are given IV antibiotics while in the hospital; you may or may not be given a prescription for home; this will be decided after surgery. Your pre-surgery prescription medications With the exception of anti- inflammatory medications, blood thinners (Coumadin, Plavix, Eliquis, Pradaxa, etc.), or narcotic pain medications, you may resume your home medications. For the above medications, you will be given specific instructions; you may resume blood thinners 3-4 days after surgery. ACTIVITIES: No strenuous activity, bending, lifting, twisting, turning, or exercise until further instructed. Walking Walking is mandatory. You need to walk at least once every hour while awake. Walking will help prevent blood clots in your legs and help prevent spasms in your back. Bending/twisting Limit bending at the waist, limit twisting and turning. You will be taught to "log roll" to get out of bed. Avoid athletic activities until further notice. Lifting Do NOT lift more than 5 lbs until further notice. Driving You may drive when you are no longer taking narcotic pain medications, can safely operate the brake/gas/clutch pedals, and can move your head/neck for visibility. Tobacco All tobacco products are strictly prohibited after surgery. Any use will dramatically increase your risk of complications. This includes vapor cigarettes, marijuana, nicotine patches and gums. Bracing/Cervical Collar There is no brace required for thoracic or lumbar surgery. If you have had a single level cervical fusion, you will be given a soft collar for comfort. Multiple level cervical fusions will receive a hard collar to be worn at all times, except for showering and hygiene, until follow up in clinic. Surgical Dressing Initial operative dressing is to stay on for 2 days; you may change it if it becomes saturated. From then on, change the dressing daily with dry gauze and paper tape. Continue to change dressing until there is no discharge. Once there is no discharge on the dressing, you may leave the incision open to air but make sure to keep it out of the sun. For supplies, stop by any local pharmacy. Any type of gauze dressing is acceptable. Do not put any ointments on the wound. You may shower 48 hours after your surgery. Cover the incision with Saran Wrap and tape the edges to prevent water from contacting the incision. If water contacts the incision, pat dry. No baths or submerging the incision until seen in the clinic at follow up appointment. SHOWERING May shower on the 3rd day after surgery. As long as there remains any drainage on the bandage/dressing, keep covered with daily fresh dressings, and cover with Saran (cling) wrap and tape the edges to shower. If the dressing becomes wet, remove it and blot the skin and surgical site dry and cover with a new sterile, dry dressing. Once there is no longer any drainage from the surgical wound site, dressings are no longer needed and the area can be left open to the air. At that point, you can wash the incision and surgical site with soap and water briefly (Do NOT soak incision), and then blot dry with a clean towel/cloth. A gain, the area should then be left open to the air. Next Appointment: If you do not already have one made, you will need to schedule an appointment to see Dr. Adams about 2 weeks after surgery. To schedule, please call [phone]. QUESTIONS Please contact the office with questions or concerns: [phone] If outside normal business hours, you will be connected with the on-call physician. Pending Studies at Discharge: No Stand-Alone Forms: My [facility], Smoking Cessation Medications and DC Order Prescriptions: Continued hydrocodone-acetaminophen 10-325 mg tablet 1 tab PO TID morphine 30 mg Tablet Extended Release 30 mg PO Q12H baclofen 10 mg Tablet 10 mg PO TID omega 6-svo-ojc-fish oil [Fish Oil] 1,000 (120-180) mg Capsule 1 cap PO HS aspirin 81 mg Capsule 81 mg PO DAILY cholecalciferol (vitamin D3) [Vitamin D3] 25 mcg (1,000 unit) Tablet 25 mcg PO QAM Held ascorbic acid (vitamin C) [Vitamin C] 500 mg Tablet 500 mg PO QAM Hold Instructions: Resume on 03/05/25. zinc 50 mg Tablet 50 mg PO QPM Hold Instructions: Resume on 03/05/25. Multivitamin 50 Plus Tablet 1 tab PO QAM Hold Instructions: Resume on 03/05/25. lutein 20 mg Tablet 20 mg PO QAM Hold Instructions: Resume on 03/05/25. Rx Instructions: give with meal/snack Discharge Orders: Discharge Order (Routine); Ordered 12/04/24 Ordered By: Cliff Evans Admission Data Admit Date/Time: 12/02/24 12:07 Attending Provider: Fox Adams Admit Provider: oFx Adams Primary Care Provider: Mynor Maddox
== END 2024-12-04 12:48 | disposition home or self-care (01) | DRG 402 ==
LOC: ASU 05:36 → PACUINP 12:07 → 3N 17:53
DX: M99.73 Connective tissue and disc stenosis of intervertebral foramina of lumbar region; Z79.82 Long term (current) use of aspirin; M48.062 Spinal stenosis, lumbar region with neurogenic claudication; Z79.891 Long term (current) use of opiate analgesic; Z88.5 Allergy status to narcotic agent; M43.16 Spondylolisthesis, lumbar region; Z88.6 Allergy status to analgesic agent; M47.26 Other spondylosis with radiculopathy, lumbar region